=== PATIENT | male | born 1935 | race Caucasian/White ===

== ENCOUNTER 2016-07-08 12:53 | Observation (INO) | payer MEDICARE, OTHER ==
[~2016-07-08 12:53] MED LIST: ACTOS30 MG; ADVAIR 25028 BLISTER INH; ADVAIR 5001 DISK W/D; ADVAIR 5001 DISK W/D IH; ADVAIR DISKUS; ALBUTEROL2.5 MG/3 M INH; ALDACTONE50 M1 PO; AMLODIPINE BES2.5 MG PO; AMLODIPINE BESY10 M1 PO; AMLODIPINE BESY10 MG PO; ASPIR 8181 MG; ASPIR 8181 MG PO; ASPIRIN EC LOW81 MG; ASPIRIN EC81 MG PO; ASPIRIN325 MG PO; ATENOLOL50 MG; AUGMENTIN 875-1 EAC2 PO; BISOPROLOL FUMA10 M1 PO; BISOPROLOL FUMAR5 MG PO; BISOPROLOL HCTZ PO; BISOPROLOL PO; BROVANA15 MCG/2 M AERO NEB; BROVANA15 MCG/2 M IH; BROVANA15 MCG/22 IH; BUDESONIDE0.5 MG/21 INH; BUTALB-ACETAMI1 EAC1 PO; BUTALB-ACETAMI1 EACH PO; CATAPRES0.1 MG PO; COLACE-T100 MG; COLACE100 M1 PO; COLACE100 MG; CPAP; DALIRESP500 MCG PO; DEMADEX20 M1 PO; FLOMAX0.4 MG; GLIPIZIDE XL2.5 M1 PO; GLIPIZIDE XL2.5 MG PO; GLUCOPHAGE XR500 MG; GLUCOPHAGE500 MG; GLUCOPHAGE500 MG PO; GLUCOPHAGE500 MG/TAB PO; H PO; HYDROCHLOROTHIAZIDE PO; IMDUR120 MG; IMDUR30 MG PO; IMDUR60 M1 PO; IMDUR60 MG; IMDUR60 MG PO; ISOSORBIDE MONO60 M3 PO; JANUVIA100 MG; K-DUR10 ME1 PO; KLOR-CON 1010 ME1 PO; KLOR-CON M10 MEQ/TAB PO; LASIX20 M1 PO; LEVALBUTER1.25 MG/2 IH; LEVAQUIN500 MG PO; LEVAQUIN750 MG PO; LIPITOR10 M1 PO; LISINOPRIL-HCT1 EAC2 PO; LISINOPRIL2.5 M1 PO; LISINOPRIL20 MG PO; MAG-AL PLUS SUS30 M1 PO; MEDROL4 MG/DOSE- PO; METFORMIN HCL500 PO; MILK OF MA400 MG/5 M PO; MS CONTIN30 MG; MUCINEX600 MG PO; MULTI VITAMIN1 EAC1 PO; MULTI VITAMIN1 EAC2 PO; MULTIVITAMIN1 TAB; NEXIUM40 MG; NITROGLYCERIN0.4 M2 SL; NORCO 5/325 TAB1 TAB PO; NORVASC10 M1 PO; NORVASC5 MG PO; OMEPRAZOLE20 M3 PO; OXYCODONE HCL5 MG; PLAVIX75 M1 PO; PLAVIX75 MG; PLAVIX75 MG PO; PLENDIL5 MG; PREDNISONE10 MG PO; PROVENTIL17 GM IH; PULMICORT0.5 MG/2 M INH; PULMICORT180 MCG/AE IH; RANEXA1000 M1 PO; RANEXA1000 MG PO; RANEXA500 M1 PO; RANEXA500 MG PO; SENOKOT-S TABLE1 TAB; SENOKOT-S TABLE1 TAB PO; SIMVASTATIN20 MG PO; SPIRIVA18 MCG; SPIRIVA18 MCG IH; TOPROL XL50 M1 PO; TRANDATE PO; TUDORZA PRESS400 MC1 INH; TUDORZA PRESSAIR IH; TYLENOL325 M1 PO; TYLENOL325 M2 PO; TYLENOL325 MG; TYLENOL325 MG PO; TYLENOL650 MG PO; ULTRAM ER100 MG; ULTRAM50 MG PO; UROXATRAL10 MG; XOPENEX; XOPENEX HFA15 G1 INH; XOPENEX HFA15 GM IH; XOPENEX0.31 MG/3; XOPENEX1.25 MG/3 AERO NEB; XOPENEX1.25 MG/3 IH; ZEBETA5 MG; ZESTRIL20 M3 PO; ZESTRIL20 MG; ZOCOR40 MG; [UNRECOGNIZED DRUG - OTHER]
[2016-07-08 13:28] LABS: BASO % 0.2 % (0-2); EOS % 0.8 % (0-7); EOSINOPHIL ABSOLUTE COUNT 0.1 tho/cmm (0.0-0.7); HCT-HEMATOCRIT 38.9 % (36.0-53.5); HGB-HEMOGLOBIN 13.5 gm/dl (13.5-17.0); IMMATURE GRANULOCYTES ABSOLUTE 0.08 tho/cmm (0-0.03); IMMATURE GRANULOCYTES PERCENT 1.3 % (0-0.3); LYMPH % 14.7 % (20-45); LYMPH ABSOLUTE COUNT 0.9 tho/cmm (0.8-4.5); MCH (MEAN CORPUSCULAR HGB) 33.9 pg (28.0-32.0); MCHC MEAN CORPUSCULAR HGB CONC 34.7 % (32.0-36.0); MCV (MEAN CELL VOLUME) 97.7 fl (82.0-96.0); MEAN PLATELET VOLUME 8.5 cmc (9.4-12.4); MONO % 8.6 % (0-12); MONOCYTE ABSOLUTE COUNT 0.5 tho/cmm (0.0-1.2); NEUTROPHIL ABSOLUTE COUNT 4.6 tho/cmm (1.6-8.0); NEUTROPHIL-AUTOMATED 4.6 tho/cmm (1.6-8.0); NEUTROPHILS % 74.4 % (40-80); PLATELET COUNT 113 tho/cmm (150-450); RED BLOOD COUNT 3.98 mil/cmm (4.40-5.70); RED CELL DISTRIBUTION WIDTH 13.5 % (12.4-16.4); WHITE BLOOD COUNT 6.2 tho/cmm (4.0-10.0)
[2016-07-08 13:45] LABS: ANION GAP 12 mmol/L (0-20); BLOOD UREA NITROGEN 20 mg/dl (6-24); CALCIUM 8.6 mg/dl (8.5-10.5); CARBON DIOXIDE-VENOUS 27 mmol/L (22-32); CHLORIDE 107 mmol/l (96-110); CREATININE 0.95 mg/dl (0.60-1.30); GLUCOSE 163 mg/dL (70-110); SODIUM 142 mmol/L (135-145); eGFR VALUE FOR BLACK 87 mL/Min
[2016-07-08 13:48] LABS: POTASSIUM 4.1 mmol/L (3.7-5.1)
[2016-07-08 21:22] LABS: BASO % 0.2 % (0-2); EOS % 1.3 % (0-7); EOSINOPHIL ABSOLUTE COUNT 0.1 tho/cmm (0.0-0.7); HCT-HEMATOCRIT 37.2 % (36.0-53.5); HGB-HEMOGLOBIN 12.8 gm/dl (13.5-17.0); IMMATURE GRANULOCYTES ABSOLUTE 0.08 tho/cmm (0-0.03); IMMATURE GRANULOCYTES PERCENT 1.7 % (0-0.3); LYMPH % 20.1 % (20-45); MCH (MEAN CORPUSCULAR HGB) 33.5 pg (28.0-32.0); MCHC MEAN CORPUSCULAR HGB CONC 34.4 % (32.0-36.0); MCV (MEAN CELL VOLUME) 97.4 fl (82.0-96.0); MEAN PLATELET VOLUME 8.6 cmc (9.4-12.4); MONO % 8.2 % (0-12); MONOCYTE ABSOLUTE COUNT 0.4 tho/cmm (0.0-1.2); NEUTROPHIL ABSOLUTE COUNT 3.2 tho/cmm (1.6-8.0); NEUTROPHIL-AUTOMATED 3.2 tho/cmm (1.6-8.0); NEUTROPHILS % 68.5 % (40-80); PLATELET COUNT 107 tho/cmm (150-450); RED BLOOD COUNT 3.82 mil/cmm (4.40-5.70); RED CELL DISTRIBUTION WIDTH 13.6 % (12.4-16.4); WHITE BLOOD COUNT 4.7 tho/cmm (4.0-10.0)
[2016-07-09 06:17] LABS: ANION GAP 12 mmol/L (0-20); BLOOD UREA NITROGEN 15 mg/dl (6-24); CALCIUM 8.3 mg/dl (8.5-10.5); CARBON DIOXIDE-VENOUS 27 mmol/L (22-32); CHLORIDE 107 mmol/l (96-110); CHOLESTEROL 127 mg/dl (120-200); CREATININE 0.84 mg/dl (0.60-1.30); GLUCOSE 116 mg/dL (70-110); HDL CHOLESTEROL 42 mg/dl (40-60); LDL CHOLESTEROL 61 mg/dl (0-99); POTASSIUM 3.9 mmol/L (3.7-5.1); SODIUM 142 mmol/L (135-145); TRIGLYCERIDES 123 mg/dl (<149); VLDL 25 mg/dl (0-30); eGFR VALUE FOR BLACK >90 mL/Min
== END 2016-07-09 18:05 ==
LOC: EDMED 12:53 → EMR2 17:01 → CAR1 18:56
PROVIDERS: Emergency Medicine; ADMIT Internal Medicine
PROC: B2111ZZ Fluoroscopy of Multiple Coronary Arteries using Low Osmolar Contrast (ICD-10-PCS; principal; 2016-07-09)
DX: I25.110 Atherosclerotic heart disease of native coronary artery with unstable angina pectoris (principal); I10 Essential (primary) hypertension; E78.5 Hyperlipidemia, unspecified; E11.9 Type 2 diabetes mellitus without complications; I27.2 Other secondary pulmonary hypertension; Z79.02 Long term (current) use of antithrombotics/antiplatelets; Z79.84 Long term (current) use of oral hypoglycemic drugs; Z79.82 Long term (current) use of aspirin; Z79.899 Other long term (current) drug therapy; Z88.8 Allergy status to other drugs, medicaments and biological substances; Z87.891 Personal history of nicotine dependence; Z82.49 Family history of ischemic heart disease and other diseases of the circulatory system; Z83.3 Family history of diabetes mellitus; Z90.49 Acquired absence of other specified parts of digestive tract; Z90.79 Acquired absence of other genital organ(s); Z95.5 Presence of coronary angioplasty implant and graft; Z96.642 Presence of left artificial hip joint; Z96.652 Presence of left artificial knee joint; Z98.890 Other specified postprocedural states
CPT/HCPCS: C1887; C1894; G0378; J1644; J2250; J3010; Q9967